=== PATIENT | male | born 1955 | race Caucasian/White ===

== ENCOUNTER 2017-06-19 09:18 | Emergency (ER) | payer OTHER ==
[~2017-06-19] VITALS: Ht 170.2 cm; Wt 105.0 kg
[~2017-06-19 09:18] MED LIST: ASPI-727; BENA40TA41; METF500T3; METO100T; ZOC10
[2017-06-19 09:25] VITALS: Ht 170.2 cm; Wt 105.0 kg
[2017-06-19] MEDS ORDERED: ASPIRIN 325 MG TAB PO STA (10:22)
[2017-06-19] MEDS ORDERED: NITROGLYCERIN (SL) 0.4 MG TAB SL PRN (10:30)
[2017-06-19 10:54] LABS: BASOPHIL # 0.1 10^3/ul (0.0-0.1); BASOPHILS % 0.7 % (0.0-2.0); EOSINOPHILS # 0.3 10^3/ul (0.0-0.5); EOSINOPHILS % 3.3 % (0.0-7.0); HEMATOCRIT 46.1 % (42.0-52.0); HEMOGLOBIN 16.1 g/dl (14.0-18.0); LYMPHOCYTES # 1.8 10^3/ul (0.8-2.9); LYMPHOCYTES % 17.6 % (15.0-51.0); MEAN CORPUSCULAR HEMOGLOBIN 31.9 pg (29.0-33.0); MEAN CORPUSCULAR HGB CONC 34.9 g/dl (32.0-37.0); MEAN CORPUSCULAR VOLUME 91.5 fl (82.0-101.0); MEAN PLATELET VOLUME 9.6 fl (7.4-10.4); MONOCYTES % 9.8 % (0.0-11.0); NEUTROPHIL # 6.9 10^3/ul (1.6-7.5); NEUTROPHILS % 68.4 % (39.0-77.0); PLATELET COUNT 340 10^3/UL (140-415); RED BLOOD COUNT 5.04 10^6/ul (4.70-6.10); RED CELL DISTRIBUTION WIDTH 11.9 % (11.5-14.5); WHITE BLOOD COUNT 10.2 10^3/ul (4.8-10.8)
[2017-06-19] MEDS ORDERED: ASPI-664 PO (11:08)
[2017-06-19] MEDS ORDERED: BENA40TA41 PO (11:08)
[2017-06-19] MEDS ORDERED: HYDR25TA6 PO (11:09)
[2017-06-19] MEDS ORDERED: NIFE60TA7 PO (11:09)
[2017-06-19] MEDS ORDERED: SIMV40TA2 PO (11:09)
[2017-06-19] MEDS ORDERED: METF1000 PO (11:09)
[2017-06-19] MEDS ORDERED: GLIM4TAB PO (11:10)
--- NOTE | 2017-06-19 11:12 | RADRPT ---
PROCEDURE: XR Chest 1 View. CLINICAL INDICATION: Chest pain. TECHNIQUE: AP view of the chest was obtained. COMPARISON: None. FINDINGS: The heart size is within normal limits. Calcified atherosclerosis is noted in the aorta. No consol idations are identified. No pneumothorax is seen. Osseous structures are intact. IMPRESSION: Calcified atherosclerosis in the aorta. Clear lungs. RPTAT: AA .Eric Mayorga MD, MD Date Time Electronically viewed and signed by .Eric Mayorga MD, on 06/19/2017 11:12 .P/
[2017-06-19 11:15] LABS: INR 1.1; PROTIME 14.2 Sec (12.2-14.2); PT RATIO 1.1
[2017-06-19 11:16] LABS: PARTIAL THROMBOPLASTIN TIME 31.1 Sec (25.0-35.0)
[2017-06-19 11:21] LABS: ALANINE AMINOTRANSFERASE 45 IU/L (13-69); ALBUMIN 4.2 g/dl (3.3-4.9); ALBUMIN/GLOBULIN RATIO 1.16; ALKALINE PHOSPHATASE 88 IU/L (42-121); ANION GAP 13 (8-16); ASPARTATE AMINO TRANSFERASE 27 IU/L (15-46); BILIRUBIN,INDIRECT 0.9 mg/dl (0-1.1); BILIRUBIN,TOTAL 0.9 mg/dl (0.2-1.3); BLOOD UREA NITROGEN 11 mg/dl (7-20); CALCIUM 10.1 mg/dl (8.4-10.2); CARBON DIOXIDE 28 mmol/L (21-31); CHLORIDE 102 mmol/L (97-110); CREATINE KINASE 43 IU/L (23-200); CREATININE 0.71 mg/dl (0.61-1.24); GLUCOSE 299 mg/dl (70-220); POTASSIUM 3.8 mmol/L (3.5-5.1); SODIUM 139 mmol/L (135-144); TOTAL PROTEIN 7.8 g/dl (6.1-8.1)
[2017-06-19 11:39] LABS: B-TYPE NATRIURETIC PEPTIDE 16 PG/ML (0-125)
[2017-06-19 11:42] LABS: CK-MB 0.53 ng/ml (0.0-2.4); TROPONIN-I < 0.012 ng/ml (0.00-0.12)
[2017-06-19] MEDS ORDERED: SOD CHLORIDE 0.9% 100 ML ONE (12:09)
[2017-06-19] MEDS ORDERED: IODIXANOL LOCM 50 ML BTL ONE (12:09)
[2017-06-19] MEDS ORDERED: IODIXANOL LOCM 100 ML BTL ONE (12:09)
--- NOTE | 2017-06-19 13:00 | RADRPT ---
PROCEDURE: CT Pulmonary Angiogram. CLINICAL INDICATION: Chest pain and shortness of breath. TECHNIQUE: CT pulmonary angiogram and a CT scan of the chest with contrast was performed. The pat ient was scanned following the uncomplicated intravenous administration of 120 cc of Visipaque 320 i ntravenous contrast. 2-D coronal reformatted images were obtained from the axial source images. In addition, 3-D post processing was performed. Total exam DLP is 796.28 mGy-cm. CTDIvol is 28.17 mG y. One or more of the following dose reduction techniques were used: Automated exposure control, ad justment of the mA and/or kV according to patient size, use of iterative reconstruction technique. COMPARISON: None available. FINDINGS: The pulmonary arteries are normal with no filling defect or lack of enhancement to suggest pulmonary artery embolism. The lungs are clear. There is no pulmonary airspace or interstitial disease. There is no pulmonary nodule or mass lesion. There is no pneumothorax. There is no mediastinal or hilar lymphadenopathy or mass. There is no pleural effusion. There is no pericardial effusion. There is calcification in the aorta consistent with atherosclerosis. The thoracic aorta is otherwise normal with no aneurysm or dissection. Images through the upper abdomen demonstrate diffuse decreased attenuation of the liver consistent w ith fatty metamorphosis. The visualized portions of the liver, spleen, and adrenals are otherwise no rmal. There are mild degenerative changes of the spine. There is no fracture or lytic lesion. IMPRESSION: 1. Normal CT pulmonary angiogram with no evidence of pulmonary artery embolism. 2. Atherosclerosis. 3. Mild degenerative changes of the spine. 4. Fatty metamorphosis of the liver. 5. Otherwise unremarkable study. RPTAT: QQ .Lloyd Kim MD, Date Time Electronically viewed and signed by .Lloyd Kim MD, MD on 06/19/2017 12:59 .R/
[2017-06-19] MEDS ORDERED: INSULIN LISPRO 100 UNIT/ML VIAL SC STA (13:54)
[2017-06-19 14:11] VITALS: BP 148/84; PULSE 76; RESP 16; TEMP 98.1
--- NOTE | 2017-06-19 14:22 | ERD ---
ER Documentation Chief Complaint Date/Time DATE: 06/19/17 TIME: 14:11 Chief Complaint Complains of chest pain since this am Hx of HTN HPI This is a 61-year-old male with history of hypertension that presents to the emergency department complaining of 3 weeks of intermittent pleuritic chest pain. He indicates that there is no chest pressure that radiates the neck arm back or jaw. Indicates that the pain is worse with inspiration and movement. He indicates he presents to the emergency department today as he got involved in a verbal altercation with an employee at the [employer] and afterwards stated his pleuritic chest discomfort had worsened. He felt short of breath at rest. He denies any swelling of his lower extremities. He stated he took his blood pressure was elevated with a systolic of greater than 180. He denies a headache or changes in vision. He denies any neck pain. He denies any recent travel or prolonged immobilization. He has a history of [id number] diabetes mellitus and is compliant with his medications which includes metformin and glimpride. The patient does not smoke tobacco. He has no family history of coronary artery disease in his first-degree relatives less than 50 years of age ROS All systems reviewed and are negative except as per history of present illness. Medications Home Meds Reported Medications Glimepiride* (Glimepiride*) 4 Mg Tablet, 4 MG PO WITH BREAKFAST, TAB 06/19/17 Nifedipine* (Nifedipine ER*) 60 Mg Tablet.sa, 60 MG PO DAILY, TAB.SA 06/19/17 Hydrochlorothiazide* (Hydrochlorothiazide*) 25 Mg Tab, 25 MG PO DAILY, #30 TAB 06/19/17 Simvastatin* (Zocor*) 40 Mg Tablet, 40 MG PO QHS, #30 TAB 06/19/17 Metformin Hcl* (Metformin Hcl*) 1,000 Mg Tablet, 1000 MG PO WITH BREAKFAST DINNE , #30 TAB 06/19/17 Benazepril Hcl* (Benazepril Hcl*) 40 Mg Tablet, 40 MG PO DAILY, #30 TAB 06/19/17 Aspirin (Low Dose Aspirin) 81 Mg Tablet.dr, 81 MG PO DAILY, #30 TAB 06/19/17 Discontinued Reported Medications Metformin* (Glucophage* XR) 500 Mg Tab.sr.24h, 200 06/01/11 Metoprolol (Lopressor) 100 Mg Tablet 06/01/11 Benazepril Hcl* (Benazepril Hcl*) 40 Mg Tablet 06/01/11 Simvastatin (Simvastatin) 10 Mg Tablet 06/01/11 Aspirin (Adult Aspirin) 81 Mg Tab.chew 06/01/11 Allergies Allergies: Coded Allergies: No Known Allergy (Verified , 06/19/17) PMhx/Soc History of Surgery: Yes (HERNIA REPAIR) Anesthesia Reaction: No Hx Neurological Disorder: No Hx Respiratory Disorders: No Hx Cardiac Disorders: Yes (HTN) Hx Psychiatric Problems: No Hx Miscellaneous Medical Probl: Yes (DM, cholesterol) Hx Alcohol Use: No Hx Substance Use: No Hx Tobacco Use: No Smoking Status: Never smoker Physical Exam Vitals Vital Signs Date Time Temp Pulse Resp B/P Pulse Ox O2 Delivery O2 Flow Rate FiO2 06/19/17 12:37 97.7 74 18 164/82 95 06/19/17 09:25 97.6 85 20 199/94 95 Physical Exam Constitutional:Well-developed. Well-nourished. HEENT:Normocephalic. Atraumatic.Pupils were equal round reactive to light. Moist mucous membranes.No tonsillar exudates. Neck: No nuchal rigidity. No lymphadenopathy. No posterior cervical spine tenderness or step-offs. Respiratory: Not using accessory muscles of respiration.Lungs were clear to auscultation bilaterally. No rhonchi. No rales. No wheezing. Cardiovascular: Regular rate regular rhythm.No murmurs. No rubs were appreciated.S1, S2 normal. Distal pulses are palpable 2+ bilaterally. GI: Abdomen was soft. Nontender. Non Distended. No pulsatile abdominal masses or bruits. No rebound. No guarding. Bowel sounds were present and normal. Muscle skeletal: Full range of motion of both the upper and lower extremities bilaterally.Normal muscle tone.No assymetrical calf tenderness or swelling. Skin: No petechia, no purpura. No lesions on the palms or the soles of the feet. No maculopapular rash. NEURO: Patient was alert, awake, orientated x3.No facial droop. Gait observed and normal with no ataxia.Speech had regular rate and rhythm. No focal neurological deficits. Result Diagram: 06/19/17 1045 06/19/17 1045 Results 24 hrs Laboratory Tests Test 06/19/17 10:45 06/19/17 14:03 White Blood Count 10.210^3/ul Red Blood Count 5.0410^6/ul Hemoglobin 16.1g/dl Hematocrit 46.1% Mean Corpuscular Volume 91.5fl Mean Corpuscular Hemoglobin 31.9pg Mean Corpuscular Hemoglobin Concent 34.9g/dl Red Cell Distribution Width 11.9% Platelet Count 87368^3/UL Mean Platelet Volume 9.6fl Neutrophils % 68.4% Lymphocytes % 17.6% Monocytes % 9.8% Eosinophils % 3.3% Basophils % 0.7% Nucleated Red Blood Cells % 0.0/100WBC Neutrophils # 6.910^3/ul Lymphocytes # 1.810^3/ul Monocytes # 1.010^3/ul Eosinophils # 0.310^3/ul Basophils # 0.110^3/ul Nucleated Red Blood Cells # 0.010^3/ul Prothrombin Time 14.2Sec Prothrombin Time Ratio 1.1 INR International Normalized Ratio 1.10 Activated Partial Thromboplast Time 31.1Sec Sodium Level 139mmol/L Potassium Level 3.8mmol/L Chloride Level 102mmol/L Carbon Dioxide Level 28mmol/L Anion Gap 13 Blood Urea Nitrogen 11mg/dl Creatinine 0.71mg/dl Glucose Level 299mg/dl Calcium Level 10.1mg/dl Total Bilirubin 0.9mg/dl Direct Bilirubin 0.00mg/dl Indirect Bilirubin 0.9mg/dl Aspartate Amino Transf (AST/SGOT) 27IU/L Alanine Aminotransferase (ALT/SGPT) 45IU/L Alkaline Phosphatase 88IU/L Creatine Kinase 43IU/L Creatine Kinase Index 1.2 Creatinine Kinase MB (Mass) 0.53ng/ml Troponin I < 0.012ng/ml B-Type Natriuretic Peptide 16PG/ML Total Protein 7.8g/dl Albumin 4.2g/dl Globulin 3.60g/dl Albumin/Globulin Ratio 1.16 Bedside Glucose 92mg/dL Current Medications Medications (Trade) Dose Ordered Sig/Jarrod Route PRN Reason Start Time Stop Time Status Last Admin Dose Admin Aspirin (Aspirin) 325 mg ONCE STAT PO 06/19/17 10:22 06/19/17 10:24 DC 06/19/17 10:40 Nitroglycerin (Nitroglycerin (Sl Tab) 0.4 Mg) 1 tab Q5M UP TO 3 DOSES PRN SL CHEST PAIN 06/19/17 10:30 06/19/17 10:40 IV Flush 10 ml 10 ml STK-MED ONCE .ROUTE 06/19/17 12:09 06/19/17 12:10 DC Sodium Chloride (NS) 100 ml @ ud STK-MED ONCE .ROUTE 06/19/17 12:09 06/19/17 12:10 DC Iodixanol (Visipaque Locm) 100 ml STK-MED ONCE .ROUTE 06/19/17 12:09 06/19/17 12:10 DC Iodixanol (Visipaque Locm) 50 ml STK-MED ONCE .ROUTE 06/19/17 12:09 06/19/17 12:10 DC Insulin Human Lispro (Humalog) 5 unit ONCE STAT SC 06/19/17 13:54 06/19/17 13:56 DC Procedures/MDM The patient presented to the emergency department complaining of chest pain shortness of breath. My clinical evaluation and workup was to distinguish minor causes of chest pain from acute life threatening cardiopulmonary causes such as myocardial infarction, pulmonary embolism, aortic dissection, esophageal rupture , cardiac tamponade, The patient was placed on a rn cardiac rehab, continuous pulse oximetry and IV access established by nursing staff. 12 Lead EKG tracing ordered and reviewed by myself showed: Normal sinus rhythm of 89 bpm and no arrhythmia. MN interval normal. QRS duration normal. No ST segment elevation No ST segment depression. No changes consistent with acute ischemia. The patient was a low pretest probability according to the well's criteria for pulmonary embolism. I did however perform a CT scan of the patient's chest which showed no evidence of dissection or pulmonary embolism. The patient was hyperglycemic without ketosis however this resolved without any treatment as the patient's Accu-Chek prior to discharge was 99. Feel the patient's symptoms are likely result of pleurisy. The patient was offered a trial of observation for chest pain however he stated he felt comfortable being discharged home and he will follow-up on an outpatient basis with a insurance marketing rep. The patient was discharged home in fair condition. They were instructed to return to the emergency department at any time if there was any worsening of their condition. The patient stated they would follow up with their PCP in the next 24-48 hours to initiate a suitable medication regimen under the care of their PCP as well as to allow their PCP to monitor any drug reactions. The patient was discharged home with prescriptions after they gave informed consent to the new medication. They were also fully informed by myself on the adverse effects and adverse drug interactions in order to provide adequate safeguards to prevent possible adverse reactions to medications. Departure Diagnosis: Primary Impression: Pleurisy Condition: Fair Patient Instructions: Pleurisy Referrals: [facility] Gill (PCP) SHITAL CHAVEZ Jun 19, 2017 14:21
== END 2017-06-19 14:14 | disposition home or self-care (01) ==
LOC: E/R 09:18
DX: R09.1 Pleurisy (principal); E11.9 Type 2 diabetes mellitus without complications; I10 Essential (primary) hypertension; R06.02 Shortness of breath; Z79.82 Long term (current) use of aspirin; Z79.84 Long term (current) use of oral hypoglycemic drugs
CPT/HCPCS: 71010; 71275; 80053; 82550; 82553; 82962; 83880; 84484; 85025; 85610; 85730; 93005; J1815; Q9967; Z7502; Z7610

== ENCOUNTER 2017-12-15 10:33 | Emergency (ER) | END 2017-12-15 12:19 | disposition home or self-care (01) ==

== ENCOUNTER 2019-05-28 11:28 | Emergency (ER) | payer OTHER ==
[~2019-05-28] VITALS: Ht 172.7 cm; Wt 107.3 kg
[~2019-05-28 11:28] MED LIST changes: -ASPI-727; +ASPI81TA52 PO; +ATOR-2 PO; -BENA40TA41; +BENA40TA56 PO; +GLIM4TAB PO; +HYDR25SU23 PR; +HYDR25TA6 PO; +METF100010 PO; -METF500T3; -METO100T; +NIFE60TA18 PO; +NIFE90TA11 ORAL; +PHEN28OI6 PR; +SIMV40TA2 PO; -ZOC10
[2019-05-28 11:30] VITALS: Ht 172.7 cm; Wt 107.3 kg
[2019-05-28] MEDS ORDERED: ASPIRIN 325 MG TAB PO STA (12:11)
[2019-05-28 14:00] VITALS: BP 148/98; PULSE 80; RESP 18
== END 2019-05-28 16:28 | disposition home or self-care (01) ==
LOC: E/R 11:28
DX: R07.1 Chest pain on breathing (principal); R09.1 Pleurisy; I10 Essential (primary) hypertension; E11.9 Type 2 diabetes mellitus without complications; Z79.82 Long term (current) use of aspirin; Z79.84 Long term (current) use of oral hypoglycemic drugs; Z87.891 Personal history of nicotine dependence
CPT/HCPCS: 36415; 71045; 80048; 83880; 84484; 85025; 85378; 93005; Z7502; Z7610